=== PATIENT | female | born 1965 | race Caucasian/White ===

== ENCOUNTER → 2016-10-01 | Outpatient (CLI) | payer OTHER ==
--- NOTE | 2016-10-01 13:46 | RAD ---
DATE: 10/01/2016 EXAM: DIGITAL DIAGNOSTIC BILATERAL HISTORY: 6 month follow-up of nodular density in left breast. COMPARISON: 03/31/2016 This study was interpreted with the benefit of Computerized Aided Detection (CAD). FINDINGS: Digital MLO and CC mammograms of both breasts were obtained. Comparison studies are dated 05/01/2016, 10/02/2015 and 09/19/2015. The breast parenchyma is composed of scattered fibroglandular densities which can obscure a lesion on mammography (breast density code B). The small nodular density seen within the left breast seen on the previous examinations is not well visualized on today's study. No spiculated mass is seen. No malignant appearing calcification or area of architectural distortion is noted. IMPRESSION: The small nodular density within the left breast seen on previous examinations is not well-visualized on today's study. I would recharacterize the patient's mammograms as a BI-RADS Category 1, negative no mammographic evidence of malignancy with a recommendation for routine yearly screening mammography for follow-up. BI-RADS CATEGORY: 1 NEGATIVE RECOMMENDED FOLLOW-UP: 12M 12 MONTH FOLLOW-UP PQRS compliance statement: Patient information was entered into a reminder system with a target due date 10/01/2017 for the next mammogram. Mammography is a sensitive method for finding small breast cancers, but it does not detect them all and is not a substitute for careful clinical examination. A negative mammogram does not negate a clinically suspicious finding and should not result in delay in biopsying a clinically suspicious abnormality. "Our facility is accredited by the [employer] Mammography Program."
== END | disposition home or self-care (01) ==
LOC: MAMMO 12:54
PROVIDERS: ATTEND Nurse Practitioner
DX: R92.8 Other abnormal and inconclusive findings on diagnostic imaging of breast (principal)
CPT/HCPCS: G0204; 77066